=== PATIENT | female | born 1940 | race Caucasian/White ===

== ENCOUNTER 2020-05-02 06:49 | Outpatient (CLI) | payer MEDICARE, OTHER ==
[2020-05-02] MEDS ORDERED: eliquis PO (11:34)
[2020-05-02] MEDS ORDERED: METO25TA35 PO (11:34)
[2020-05-02] MEDS ORDERED: CLOP75TA52 PO (11:34)
== END 2020-05-02 23:59 | disposition home or self-care (01) ==
LOC: CVU 06:49
PROVIDERS: ATTEND Internal Medicine Clinical Cardiac Electrophysiology
DX: I11.9 Hypertensive heart disease without heart failure (principal); I08.0 Rheumatic disorders of both mitral and aortic valves; I25.10 Atherosclerotic heart disease of native coronary artery without angina pectoris; E78.5 Hyperlipidemia, unspecified; I45.19 Other right bundle-branch block
CPT/HCPCS: 93306

== ENCOUNTER 2020-05-02 10:30 | Day surgery (SDC) | payer MEDICARE ==
[~2020-05-02] VITALS: Ht 193 cm; Wt 100.0 kg
[2020-05-02] MEDS ORDERED: eliquis PO (11:34)
[2020-05-02] MEDS ORDERED: METO25TA35 PO (11:34)
[2020-05-02] MEDS ORDERED: CLOP75TA52 PO (11:34)
[2020-05-02 11:36] VITALS: BP 169/102
[2020-05-02 11:51] LABS: INTERNATIONAL NORMALIZED RATIO 1.05 (0.93-1.1); PROTHROMBIN TIME 11.1 Seconds (9.6-11.5)
[2020-05-02 12:25] LABS: BASOPHILS # (AUTO) 0.02 x10^3/uL (0-0.1); BASOPHILS % (AUTO) 0 % (0-1); EOSINOPHILS # (AUTO) 0.07 x10^3/uL (0-0.4); EOSINOPHILS % (AUTO) 1 % (1-7); LYMPHOCYTES % (AUTO) 21 % (22-44); MD NO; MEAN CORPUSCULAR HEMOGLOBIN 30.1 pg (27.0-34.8); MEAN CORPUSCULAR HGB CONC 32.9 g/dL (32.4-35.8); MEAN CORPUSCULAR VOLUME 91.5 fL (80-100); MEAN PLATELET VOLUME 7.7 fL (7.4-10.4); MONOCYTES # (AUTO) 0.65 x10^3/uL (0.2-0.8); MONOCYTES % (AUTO) 10 % (2-9); NEUTROPHILS # (AUTO) 4.41 x10^3/uL (1.8-6.8); NEUTROPHILS % (AUTO) 67 % (42-75); PLATELET COUNT 204 x10^3/uL (130-400); RED BLOOD COUNT 5.06 x10^6/uL (3.82-5.3); RED CELL DISTRIBUTION WIDTH 14.1 % (9.6-15.2)
[2020-05-02 12:33] LABS: ANION GAP 5 mmol/L (5-15); CALCIUM 8.4 mg/dL (8.5-10.1); CHLORIDE 110 mmol/L (98-107); CREATININE 1.27 mg/dL (0.55-1.02)
[2020-05-02] MEDS ORDERED: PROPOFOL 10 MG/ML, 20ML ONE (12:50)
== END 2020-05-02 14:55 | disposition home or self-care (01) ==
LOC: CACL 10:30
PROVIDERS: ATTEND Internal Medicine Clinical Cardiac Electrophysiology
DX: I48.19 Other persistent atrial fibrillation (principal); I10 Essential (primary) hypertension; Z79.01 Long term (current) use of anticoagulants; Z79.02 Long term (current) use of antithrombotics/antiplatelets; Z79.899 Other long term (current) drug therapy; Z88.5 Allergy status to narcotic agent
CPT/HCPCS: 36415; 80048; 85025; 85610; 92960; 93005; J2704